=== PATIENT | male | born 1935 | race African-American/Black ===

== ENCOUNTER 2024-06-13 16:58 | Inpatient (IN) | payer OTHER ==
[~2024-06-13] VITALS: Ht 172.7 cm; Wt 62.5 kg
[2024-06-13 17:52] LABS: HEMATOCRIT 42.3 % (41-53); HEMOGLOBIN 13.3 g/dL (13.5-17.5); MEAN CORPUSCULAR HEMOGLOBIN 28.7 pg (26.0-34.0); MEAN CORPUSCULAR HGB CONC 31.4 G/dL (31.0-37.0); MEAN CORPUSCULAR VOLUME 91 fL (80-100); PLATELET COUNT (AUTO) 263 K/uL (150-450); RED BLOOD CELL COUNT(AUTO) 4.64 MIL/uL (4.50-5.90); RED CELL DISTRIBUTION WIDTH 15.2 % (11.5-14.5)
[2024-06-13 18:00] LABS: CALCIUM, TOTAL 9.5 mg/dL (8.8-10.5); CREATININE 5.35 mg/dL (0.60-1.30); POTASSIUM 3.6 mmol/L (3.5-5.1)
[2024-06-13 18:04] LABS: WHITE BLOOD COUNT (AUTO) 49.2 K/uL (4.5-11.0)
[2024-06-13 18:07] LABS: AMMONIA 27 umol/L (11-32); TROPONIN I-HIGH SENSITIVITY 38 ng/L (<76)
[2024-06-13 18:08] LABS: ALBUMIN 2.2 g/dL (3.4-5.0); BILIRUBIN,DIRECT 0.6 mg/dL (0.00-0.20); BILIRUBIN,TOTAL 0.9 mg/dL (0.1-1.0); MAGNESIUM 2.1 mg/dL (1.80-2.40); PHOSPHORUS 4.7 mg/dL (2.5-4.9); TOTAL PROTEIN, SERUM 6.8 g/dL (6.4-8.2)
[2024-06-13] MEDS ORDERED: PIPERACILLIN/TAZO 3.375 GM/D5W 50 ML IV ONE (18:15)
[2024-06-13 18:18] LABS: APPEARANCE,URINE HAZY (CLEAR); BILIRUBIN,URINE NEGATIVE (NEGATIVE); COLOR,URINE YELLOW (YELLOW); GLUCOSE, URINE (UA) NEGATIVE (NEGATIVE); KETONES,URINE NEGATIVE (NEGATIVE); LEUKOCYTE ESTERASE ,URINE LARGE (NEGATIVE); NITRATE,URINE NEGATIVE (NEGATIVE); OCCULT BLOOD,URINE TRACE (NEGATIVE); PROTEIN,URINE 30-70 mg/dL (NEGATIVE); UROBILINOGEN,URINE <=1.0 mg/dL (<=1.0)
[2024-06-13] MEDS: SODIUM CHLORIDE 0.9% 1,000 ML IV ONE ×2 (18:24→20:05)
[2024-06-13] MEDS: AZITHROMYCIN 500 MG/NS 250 ML IV ONE (18:24)
[2024-06-13 18:30] LABS: BACTERIA,URINE Many /HPF (None Seen); WBC,URINE 51-100 /HPF (0-5)
[2024-06-13] MEDS ORDERED: ACETAMINOPHEN 325 MG TABLET PO PRN (18:30)
[2024-06-13] MEDS ORDERED: AZTREONAM 2 GM in DEXTROSE 5%-WATER 50 ML IV ONE (18:30)
[2024-06-13] MEDS ORDERED: ONDANSETRON HCL 4 MG/2 ML VIAL IVP PRN (18:30)
[2024-06-13] MEDS ORDERED: BISACODYL 10 MG RECTAL RECTAL SUPPOSITORY PR PRN (18:30)
[2024-06-13 18:31] LABS: SQUAMOUS EPITHELIAL CELL,UR Few /LPF (None Seen)
[2024-06-13] MEDS: *CLINICAL-LEVOFLOXACIN IVPB DOSING CLINICAL ONE (18:34)
[2024-06-13 18:38] LABS: LACTIC ACID 5.3 mmol/L (0.4-2.0)
[2024-06-13] MEDS ORDERED: VANCOMYCIN 1GM/WATER(PEG/NADA) 200 ML IV PRN (18:45)
[2024-06-13 18:58] LABS: BAND NEUTROPHILS % (MANUAL) 9 % (0-5); LYMPHOCYTES % (MANUAL) 2 % (22-44); METAMYELOCYTES % 1 % (0-0); MONOCYTES % (MANUAL) 2 % (2-9); RBC MORPHOLOGY COMMENT NORMAL RBC MORPH; REACTIVE LYMPHOCYTES 1 % (0-0); SEGMENTED NEUTROPHILS % 85 % (40-70); TOTAL CELLS COUNTED 100
[2024-06-13 19:00] LABS: PATHOLOGY REVIEW, DIFF YES
[2024-06-13] MEDS: VANCOMYCIN 1.25 GM/WATER(PEG) 250 ML IV ONE (19:00)
[2024-06-13] MEDS: LEVOFLOXACIN 750 MG/D5% WATER 150 ML IV ONE (20:05)
[2024-06-13 20:15] LABS: COVID AG,FIA SOURCE NASAL SWAB
[2024-06-13 20:36] LABS: INFLUENZA TYPE A NEGATIVE FOR TYPE A (NEGATIVE); INFLUENZA TYPE B NEGATIVE FOR TYPE B (NEGATIVE); SARS-COV2 (COVID) ANTIGEN,FIA Negative (Negative)
[2024-06-13] MEDS: DOCUSATE SODIUM 100 MG CAPSULE PO SCH (21:00)
[2024-06-13] MEDS: HEPARIN SODIUM,PORCINE 5,000 UNITS/ML VIAL SQ SCH (23:48)
[2024-06-14] VITALS (7 sets, daily range): BP systolic 96–133; BP diastolic 56–77; PULSE 69–103; RESP 16–19; TEMP 97.6–98.7; O2SAT 94–99
[2024-06-14] MEDS ORDERED: SODIUM CHLORIDE 0.9% 0 ML ONE (05:01)
[2024-06-14 06:43] LABS: HEMATOCRIT 38.3 % (41-53); HEMOGLOBIN 12.1 g/dL (13.5-17.5); MEAN CORPUSCULAR HEMOGLOBIN 28.6 pg (26.0-34.0); MEAN CORPUSCULAR HGB CONC 31.7 G/dL (31.0-37.0); MEAN CORPUSCULAR VOLUME 90 fL (80-100); PLATELET COUNT (AUTO) 228 K/uL (150-450); RED BLOOD CELL COUNT(AUTO) 4.24 MIL/uL (4.50-5.90); RED CELL DISTRIBUTION WIDTH 14.9 % (11.5-14.5)
[2024-06-14 07:01] LABS: WHITE BLOOD COUNT (AUTO) 40.1 K/uL (4.5-11.0)
[2024-06-14 07:03] LABS: BAND NEUTROPHILS % (MANUAL) 10 % (0-5); LYMPHOCYTES % (MANUAL) 2 % (22-44); MONOCYTES % (MANUAL) 3 % (2-9); RBC MORPHOLOGY COMMENT NORMAL RBC MORPH; SEGMENTED NEUTROPHILS % 85 % (40-70); TOTAL CELLS COUNTED 100
[2024-06-14 07:04] LABS: CALCIUM, TOTAL 8.7 mg/dL (8.8-10.5); CREATININE 4.23 mg/dL (0.60-1.30); POTASSIUM 3.3 mmol/L (3.5-5.1)
[2024-06-14 16:19] LABS: CALCIUM, TOTAL 8.8 mg/dL (8.8-10.5); CREATININE 3.79 mg/dL (0.60-1.30)
[2024-06-14 16:21] LABS: POTASSIUM 2.6 mmol/L (3.5-5.1)
[2024-06-14] MEDS: POTASSIUM CHL 10 MEQ/WATER 50 ML IV SCH (16:41)
[2024-06-14] MEDS: POTASSIUM CHLORIDE 20 MEQ ER TABLET PO ONE (16:41)
[2024-06-14 19:59] LABS: CALCIUM, TOTAL 8.8 mg/dL (8.8-10.5); CREATININE 3.62 mg/dL (0.60-1.30); POTASSIUM 3.6 mmol/L (3.5-5.1)
[2024-06-15 04:46] VITALS: BP 123/78; PULSE 87; RESP 18; TEMP 97.6; O2SAT 99
[2024-06-15 07:08] LABS: BASOPHILS % (AUTO) 0.3 % (0.0-2.0); EOSINOPHILS % (AUTO) 0 % (1.0-6.0); HEMATOCRIT 39.1 % (41-53); HEMOGLOBIN 12.7 g/dL (13.5-17.5); LYMPHOCYTES # (AUTO) 1.2 K/uL (1.0-4.8); LYMPHOCYTES % (AUTO) 4.3 % (22.0-44.0); MEAN CORPUSCULAR HEMOGLOBIN 29.2 pg (26.0-34.0); MEAN CORPUSCULAR HGB CONC 32.3 G/dL (31.0-37.0); MEAN CORPUSCULAR VOLUME 90 fL (80-100); MONOCYTES # (AUTO) 1.7 K/uL (0.1-1.0); NEUTROPHILS # (AUTO) 25.8 K/uL (1.8-7.7); PLATELET COUNT (AUTO) 230 K/uL (150-450); RED BLOOD CELL COUNT(AUTO) 4.33 MIL/uL (4.50-5.90); RED CELL DISTRIBUTION WIDTH 15.3 % (11.5-14.5); WHITE BLOOD COUNT (AUTO) 28.9 K/uL (4.5-11.0)
[2024-06-15 07:10] LABS: NEUTROPHILS % (AUTO) 89.4 % (40.0-70.0)
[2024-06-15 07:33] LABS: CALCIUM, TOTAL 9.1 mg/dL (8.8-10.5); CREATININE 3.02 mg/dL (0.60-1.30); MAGNESIUM 2.1 mg/dL (1.80-2.40); PHOSPHORUS 3.6 mg/dL (2.5-4.9); POTASSIUM 3.5 mmol/L (3.5-5.1); VANCOMYCIN,RANDOM 10.9 mcg/mL (25.0-50.0)
[2024-06-15 08:17] VITALS: BP 108/70; PULSE 84; RESP 19; TEMP 98; O2SAT 98
[2024-06-15] MEDS ORDERED: VANCOMYCIN 1.25 GM/WATER(PEG) 250 ML IV ONE (09:00)
[2024-06-15] MEDS: DEXTROSE 5%-WATER 1,000 ML IV SCH (11:03)
[2024-06-15 12:58] VITALS: BP 142/69; PULSE 82; RESP 18; TEMP 98; O2SAT 100
[2024-06-15 15:30] VITALS: BP 143/81; PULSE 74; RESP 19; TEMP 98.1; O2SAT 94
[2024-06-15] MEDS ORDERED: LEVOFLOXACIN 500 MG/D5% WATER 100 ML IV SCH (19:00)
== END 2024-06-15 16:00 | disposition short-term general hospital (02) | DRG 871 ==
LOC: EMS 16:58 → EDH 18:33 → 5S 06-14 00:30
PROVIDERS: ADMIT Internal Medicine; ATTEND Internal Medicine
DX: A41.50 Gram-negative sepsis, unspecified (principal); G92.8 Other toxic encephalopathy; E87.0 Hyperosmolality and hypernatremia; E87.20 Acidosis, unspecified; N17.9 Acute kidney failure, unspecified; N39.0 Urinary tract infection, site not specified; Z20.822 Contact with and (suspected) exposure to COVID-19; I10 Essential (primary) hypertension; E87.6 Hypokalemia; F03.90 Unspecified dementia, unspecified severity, without behavioral disturbance, psychotic disturbance, mood disturbance, and anxiety; K40.20 Bilateral inguinal hernia, without obstruction or gangrene, not specified as recurrent; K56.41 Fecal impaction; K57.30 Diverticulosis of large intestine without perforation or abscess without bleeding; K76.89 Other specified diseases of liver; N40.1 Benign prostatic hyperplasia with lower urinary tract symptoms; Z88.0 Allergy status to penicillin
CPT/HCPCS: 70450; 71045; 72125; 74176; 80048; 80076; 80202; 81001; 82140; 82550; 83605; 83735; 83880; 84100; 84145; 84484; 85025; 85730; 87040; 87077; 87086; 87186; 87205; 87804; 92610; 93005; 99285; G0378; J0456; J1644; J1956; J2543; J3480; J3490; J7030; J7050; J7060; 36415-L1; 36415-TC